=== PATIENT | female | born 1980 | race Two or more races ===

== ENCOUNTER 2018-09-22 10:22 | Emergency (ER) | payer MEDICAID ==
[~2018-09-22] VITALS: Ht 134.6 cm; Wt 77.1 kg
[2018-09-22 10:26] VITALS: BP 123/76
[2018-09-22] MEDS ORDERED: NKM (10:29)
[2018-09-22] MEDS ORDERED: Ketorolac 30mg Inj IV ONE (11:00)
[2018-09-22] MEDS ORDERED: Morphine Sulfate 2mg/ml Inj(IV/IM USE ONLY) IVP ONE (11:00)
[2018-09-22 11:28] LABS: APPEARANCE,URINE CLEAR; BILIRUBIN, URINE NEGATIVE (NEGATIVE); COLOR,URINE PALE YELLOW; EOSINOPHILS % (AUTO) 1.4 % (0.0-3.0); GLUCOSE, URINE (UA) NEGATIVE (NEGATIVE); HEMATOCRIT 35.8 % (37.0-47.0); KETONES,URINE NEGATIVE (NEGATIVE); LEUKOCYTE ESTERASE ,URINE 1+ (NEGATIVE); LYMPHOCYTES % (AUTO) 28.6 % (20.0-45.0); MEAN CORPUSCULAR VOLUME 72 FL (80-99); MONOCYTES % (AUTO) 5.7 % (1.0-10.0); NEUTROPHILS % (AUTO) 63.4 % (45.0-75.0); NITRITE,URINE NEGATIVE (NEGATIVE); PH,URINE 7 (4.5-8.0); PLATELET COUNT 382 K/UL (150-450); PROTEIN,URINE NEGATIVE (NEGATIVE); RED BLOOD COUNT 4.94 M/UL (4.20-5.40); RED CELL DISTRIBUTION WIDTH 15.9 % (11.6-14.8); UROBILINOGEN,URINE NORMAL MG/DL (0.0-1.0); WHITE BLOOD COUNT 8.4 K/UL (4.8-10.8)
[2018-09-22 11:35] LABS: ANION GAP 7 mmol/L (5-15); BLOOD UREA NITROGEN 14 mg/dL (7-18); CALCIUM 8.9 MG/DL (8.5-10.1); CARBON DIOXIDE 27 MMOL/L (21-32); CHLORIDE 107 MMOL/L (98-107); CREATININE 0.7 MG/DL (0.55-1.30); INR 0.9 (0.9-1.1); POTASSIUM 4.2 MMOL/L (3.5-5.1); SODIUM 141 MMOL/L (136-145)
[2018-09-22 11:38] LABS: ALANINE AMINOTRANSFERASE 31 U/L (12-78); ALBUMIN 3.6 G/DL (3.4-5.0); ALBUMIN/GLOBULIN RATIO 0.9 (1.0-2.7); ALKALINE PHOSPHATASE 100 U/L (46-116); ASPARTATE AMINO TRANSFERASE 19 U/L (15-37); BILIRUBIN,TOTAL 0.3 MG/DL (0.2-1.0)
--- NOTE | 2018-09-22 13:05 | Diagnostic Imaging Report ---
INDICATION: Pain TECHNIQUE: Multiple, contiguous axial cuts of the lumbar spine are obtained. Sagittal and coronal reformats are available. No IV contrast given. One or more of the following dose reduction techniques were used: automated exposure control, adjustment of the mA and/or kV according to patient size, use of iterative reconstruction technique. COMPARISON: None FINDINGS: No fracture or subluxation is identified. The vertebral body heights and disc spaces are preserved. A 1-2 mm diffuse disc bulges are seen L4-L5 and L5-S1. Bone mineralization is within normal limits. No prevertebral soft tissue thickening. IMPRESSION: 1-2 mm diffuse disc bulges at L4-L5 and L5-S1. Otherwise, normal CT of the lumbar spine.
[2018-09-22] MEDS ORDERED: Morphine Sulfate 4mg/ml Inj (IV USE ONLY) IVP ONE (13:30)
[2018-09-22] MEDS ORDERED: oxyCODONE HCL/Acetaminophen 5/325mg ORAL ONE (14:30)
[2018-09-22] MEDS ORDERED: Methocarbamol 500mg tab ORAL ONE (14:30)
--- NOTE | 2018-09-22 14:34 | Emergency Room Report ---
History of Present Illness General Chief Complaint: Back Pain-No Injury Source: Patient Present Illness HPI Patient presents with severe for of lumbar pain. It's been worsening over the course of weak. She states that is more in her lower back but radiates to her upper back and the muscles. It is worse when she changes position. She feels tightness in her back. The pain is rated 10/10 and constant, aching and somewhat sharp. She is not taking any medications. She denies any fevers, chills, oncologic problems, IV drug use, extremity numbness or weakness, incontinence or blood thinners. She is never had this pain before and has never had evaluation for it. She is on her period at this time. She denies major medical problems at this time. No chest pain, palpitations, nausea, vomiting, diarrhea, dysuria, abdominal pain , shortness of breath, depression, visual changes, headache. Allergies: Coded Allergies: No Known Allergies (Unverified , 09/22/18) Patient History Past Medical History: see triage record Social History: Denies: smoking Social History Narrative With her daughter Last Menstrual Period: currently on : 2 Reviewed Nursing Documentation: PMH: Agreed; PSxH: Agreed Nursing Documentation-PMH Past Medical History: No Stated History Review of Systems All Other Systems: negative except mentioned in HPI Physical Exam Vital Signs Date Time Temp Pulse Resp B/P (MAP) Pulse Ox O2 Delivery O2 Flow Rate FiO2 09/22/18 10:26 98.1 62 15 123/76 100 Room Air Sp02 EP Interpretation: reviewed, normal General Appearance: well appearing, no apparent distress, GCS 15 Head: normocephalic, atraumatic Eyes: bilateral eye normal inspection, bilateral eye PERRL ENT: moist mucus membranes Neck: full range of motion, supple, no bony tend Respiratory: lungs clear, normal breath sounds, other - Upper back muscle spasm Cardiovascular #1: regular rate, rhythm Cardiovascular #2: 2+ radial (R) Gastrointestinal: normal inspection, normal bowel sounds, non tender, no mass, non-distended Genitourinary: other - Bilateral CVA tenderness more related to muscle spasm Musculoskeletal: gait/station normal, normal range of motion, tender - More lumbar area but also extending up to the upper back with muscle spasm, no point tenderness. Straight leg raise is negative bilaterally Neurologic: alert, oriented x3, motor strength/tone normal, DTRs symmetric, cerebellar normal, normal gait Psychiatric: anxious - In pain Skin: normal inspection, no rash, warm/dry Medical Decision Making Diagnostic Impression: Primary Impression: Lumbar pain ER Course Patient presents with new onset back pain and flank pain. Differential includes lumbar strain, muscle spasm, pyelonephritis, renal stone, disc disease amongst others. There are no red flag symptoms. The patient will be evaluated with labs and a CT of the spine will be performed. She will be treated with Toradol, Zofran and morphine. Labs with normal CBC, CMP. Urinalysis reflects menstruation. CT of the lumbar spine reveals disc disease. Still with pain. Morphine repeated. Patient still complains of pain states that the previous shot of morphine has not affected her. She does admit that she feels somewhat better than when she first came in. Percocet and robaxin given. Patient somewhat improved at this time. Advised her that she needed outpatient follow-up. She was given copies of her lab and CT. She was advised to return if the pain is not controlled or if she has worsening. Patient stable for outpatient observation and treatment. Laboratory Tests Test 09/22/18 11:00 White Blood Count 8.4 K/UL (4.8-10.8) Red Blood Count 4.94 M/UL (4.20-5.40) Hemoglobin 11.0 G/DL (12.0-16.0) L Hematocrit 35.8 % (37.0-47.0) L Mean Corpuscular Volume 72 FL (80-99) L Mean Corpuscular Hemoglobin 22.2 PG (27.0-31.0) L Mean Corpuscular Hemoglobin Concent 30.7 G/DL (32.0-36.0) L Red Cell Distribution Width 15.9 % (11.6-14.8) H Platelet Count 382 K/UL (150-450) Mean Platelet Volume 5.8 FL (6.5-10.1) L Neutrophils (%) (Auto) 63.4 % (45.0-75.0) Lymphocytes (%) (Auto) 28.6 % (20.0-45.0) Monocytes (%) (Auto) 5.7 % (1.0-10.0) Eosinophils (%) (Auto) 1.4 % (0.0-3.0) Basophils (%) (Auto) 1.0 % (0.0-2.0) Prothrombin Time 9.8 SEC (9.30-11.50) Prothrombin Time INR 0.9 (0.9-1.1) PTT 26 SEC (23-33) Urine Color Pale yellow Urine Appearance Clear Urine pH 7 (4.5-8.0) Urine Specific [place] 1.005 (1.005-1.035) Urine Protein Negative (NEGATIVE) Urine Glucose (UA) Negative (NEGATIVE) Urine Ketones Negative (NEGATIVE) Urine Blood 5+ (NEGATIVE) H Urine Nitrite Negative (NEGATIVE) Urine Bilirubin Negative (NEGATIVE) Urine Urobilinogen Normal MG/DL (0.0-1.0) Urine Leukocyte Esterase 1+ (NEGATIVE) H Urine RBC 40-60 /HPF (0 - 2) H Urine WBC 0-2 /HPF (0 - 2) Urine Squamous Epithelial Cells Occasional /LPF Urine Bacteria Occasional /HPF (NONE) Urine HCG, Qualitative Negative (NEGATIVE) Sodium Level 141 MMOL/L (136-145) Potassium Level 4.2 MMOL/L (3.5-5.1) Chloride Level 107 MMOL/L (98-107) Carbon Dioxide Level 27 MMOL/L (21-32) Anion Gap 7 mmol/L (5-15) Blood Urea Nitrogen 14 mg/dL (7-18) Creatinine 0.7 MG/DL (0.55-1.30) Estimate Glomerular Filtration Rate > 60 mL/min (>60) Glucose Level 100 MG/DL (74-106) Calcium Level 8.9 MG/DL (8.5-10.1) Total Bilirubin 0.3 MG/DL (0.2-1.0) Aspartate Amino Transferase (AST) 19 U/L (15-37) Alanine Aminotransferase (ALT) 31 U/L (12-78) Alkaline Phosphatase 100 U/L (46-116) Total Protein 7.7 G/DL (6.4-8.2) Albumin 3.6 G/DL (3.4-5.0) Globulin 4.1 g/dL Albumin/Globulin Ratio 0.9 (1.0-2.7) L Lipase 87 U/L (73-393) CT/MRI/US Diagnostic Results CT/MRI/US Diagnostic Results : Imaging Test Ordered: Lumbar spine Impression IMPRESSION: 1-2 mm diffuse disc bulges at L4-L5 and L5-S1. Otherwise, normal CT of the lumbar spine. Last Vital Signs Date Time Temp Pulse Resp B/P (MAP) Pulse Ox O2 Delivery O2 Flow Rate FiO2 09/22/18 14:48 97.4 75 19 120/87 100 Room Air Status: improved Disposition: HOME, SELF-CARE Condition: Improved Scripts Ibuprofen* (MOTRIN*) 600 Mg Tablet 600 MG ORAL Q6H PRN for For Pain, #20 TAB Prov: Janes Piña MD 09/22/18 Methocarbamol* (ROBAXIN*) 500 Mg Tablet 500 MG PO TID, #12 TAB 0 Refills Prov: Janes Piña MD 09/22/18 Hydrocodone Bit/Acetaminophen 5-325* (NORCO 5-325*) 1 Each Tablet 1 TAB ORAL Q6H PRN for For Pain, #8 TAB 0 Refills Prov: Janes Piña MD 09/22/18 Referrals: NOT CHOSEN [facility]/,REFERRING (PCP) Janes Piña MD Sep 22, 2018 14:33
[2018-09-22] MEDS ORDERED: IBUPROFEN600 MG ORAL (14:37)
[2018-09-22] MEDS ORDERED: NORCO 5-325 TA1 EACH ORAL (14:37)
[2018-09-22] MEDS ORDERED: ROBAXIN500 MG PO (14:37)
[2018-09-22 14:48] VITALS: BP 120/87
--- NOTE | 2018-09-22 14:48 | NUR ---
ER DISCHARGE NOTE: Pt was seend ue to lower back pain. Patient is cleared to be discharged per ERMD, pt is aox4, on room air, with stable vital signs. pt was given dc and prescription instructions, pt was able to verbalize understanding, pt id band and iv site removed without complications. pt is able to ambulate with steady gait. pt took all belongings and left with her daughetr.
== END 2018-09-22 14:48 | disposition home or self-care (01) ==
LOC: EMR 10:45
DX: M54.5 Low back pain (principal); M62.830 Muscle spasm of back; M51.36 Other intervertebral disc degeneration, lumbar region; M51.26 Other intervertebral disc displacement, lumbar region
CPT/HCPCS: 36415; 72131; 80053; 81003; 81025; 83690; 85025; 85610; 85730; 96374; 96375; 96376; 99284; J1885; J2270; J2405